=== PATIENT | male | born 1935 | race Asian ===

== ENCOUNTER 2020-10-14 06:11 | Day surgery (SDC) | payer OTHER ==
[~2020-10-14] VITALS: Ht 170.2 cm; Wt 64.0 kg
[2020-10-14] MEDS ORDERED: MIDAZOLAM 2 MG/2 ML VIAL ONE (07:31)
[2020-10-14] MEDS ORDERED: LIDOCAINE VISCOUS 2% 20 ML UDC ONE (07:31)
[2020-10-14] MEDS ORDERED: fentaNYL citrate 0.05 MG/ML VIAL ONE (07:31)
[2020-10-14] MEDS ORDERED: MIDAZOLAM 2 MG/2 ML VIAL IVP ONE (08:55)
== END 2020-10-14 08:50 | disposition home or self-care (01) ==
LOC: MFCC 06:11 → MOR 06:11
PROVIDERS: ATTEND Internal Medicine Gastroenterology
DX: D50.0 Iron deficiency anemia secondary to blood loss (chronic) (principal); K29.70 Gastritis, unspecified, without bleeding; B18.2 Chronic viral hepatitis C; Z79.82 Long term (current) use of aspirin; Z79.899 Other long term (current) drug therapy
CPT/HCPCS: 36415; 43239; 86677; 87426; J2250; J3010